=== PATIENT | male | born 1985 | race Caucasian/White ===

== ENCOUNTER 2021-01-06 22:04 | Observation (INO) ==
[2021-01-07] MEDS ORDERED: *HR* LORazepam 2 MG/ML VIAL IVP ONE (01:29)
[2021-01-07 02:20] LABS: Basophils # 0.1 K/mcL (0.0-0.2); Basophils % 0.5 %; Eosinophils # 0.3 K/mcL (0.0-0.6); Eosinophils % 2.1 %; Hematocrit 31.8 % (37.5-50.1); Hemoglobin 10.7 g/dL (12.9-16.9); Immature Granulocytes % 0.4 % (0-4); Lymphocytes # 2.7 K/mcL (0.6-4.6); Lymphocytes % 19.4 %; Mean Corpuscular HGB Conc 33.6 g/dL (31.6-35.5); Mean Corpuscular Hemoglobin 30.7 pg (28.0-33.3); Mean Corpuscular Volume 91.1 fL (83.0-100.0); Mean Platelet Volume 9.2 fL (9.4-12.4); Monocytes # 1.7 K/mcL (0.0-1.3); Monocytes % 11.9 %; Neutrophils # 9.3 K/mcL (1.6-8.9); Platelet Count 296 K/mcL (140-400); Red Blood Count 3.49 M/mcL (4.19-5.50); Red Cell Distribution Width 13.5 % (11.5-14.5); Segmented Neutrophils % 65.7 %; White Blood Count 14.1 K/mcL (4.3-11.1)
[2021-01-07 02:27] LABS: Alanine Aminotransferase 44 Units/L (7-52); Albumin 3.8 g/dL (3.5-5.7); Alkaline Phosphatase 66 Units/L (34-104); Aspartate Amino Transferase 29 Units/L (13-39); BUN/Creatinine Ratio 23 (6-26); Bilirubin,Total 0.5 mg/dL (0.3-1.0); Blood Urea Nitrogen 20 mg/dL (6-20); Carbon Dioxide 26 mEq/L (23-29); Chloride 103 mEq/L (98-107); Creatine Kinase 507 Units/L (30-223); Globulin 3.7 g/dL (2.4-3.5); Glucose 83 mg/dL (70-105); Osmolality,Calculated 286 (280-300); Potassium 4.1 mEq/L (3.5-5.1); Sodium 137 mEq/L (136-145); Total Protein 7.5 g/dL (6.4-8.9); eGFR For African Americans > 60 (> 60); eGFR For Non-African Americans > 60 (> 60)
[2021-01-07] MEDS ORDERED: Ondansetron 4 MG/2 ML VIAL IVP PRN ×2 (02:34→14:09)
[2021-01-07] MEDS ORDERED: Naloxone 0.4 MG/ML INJ IVP PRN ×2 (02:34→14:09)
[2021-01-07] MEDS ORDERED: Nicotine 14 MG PATCH.TD24 TD SCH (03:45)
[2021-01-07] MEDS ORDERED: 0.9 % Sodium Chloride 1,000 ML IVC SCH (06:30)
[2021-01-07] MEDS ORDERED: *HR* Heparin 5,000 UNIT/ML VIAL SQ SCH (06:30)
[2021-01-07] MEDS ORDERED: Vancomycin 1,250 MG/262.5 ML IV.SOLN IVPB SCH (08:00)
[2021-01-07] MEDS ORDERED: Meropenem 500 MG in Water for inj. (sterile) 10 ML IVP SCH (08:00)
[2021-01-07] MEDS ORDERED: Meropenem 1,000 MG in Water for inj. (sterile) 20 ML IVP SCH (08:00)
[2021-01-07] MEDS ORDERED: Clindamycin 600 MG/50 ML 600 MG/50 ML IV.SOLN IVPB SCH (08:00)
[2021-01-07] MEDS ORDERED: Acetaminophen IV 1,000 MG/100 ML BAG IVPB ONE ×2 (10:41→13:35)
[2021-01-07] MEDS ORDERED: *HR* FentaNYL (PF) 100 MCG/2 ML VIAL ONE ×2 (11:14→12:09)
[2021-01-07] MEDS ORDERED: Lidocaine -MPF 2% 2 ML VIAL ONE ×2 (11:14→11:16)
[2021-01-07] MEDS ORDERED: *HR* Propofol 200 MG/20 ML VIAL IVP ONE (11:16)
[2021-01-07] MEDS ORDERED: Ondansetron 4 MG/2 ML VIAL ONE (12:12)
[2021-01-07] MEDS ORDERED: *HR* Midazolam HCl 2 MG/2 ML VIAL ONE (12:12)
[2021-01-07] MEDS ORDERED: Bupivacaine/Clonidine Syringe 20 ML, Syringe LUER-LOK 1 EACH TP ONE (12:15)
[2021-01-07] MEDS ORDERED: *HR* HYDROMORPHONE 2 MG/ML VIAL ONE (13:01)
[2021-01-07] MEDS ORDERED: Ketorolac 30 MG/ML VIAL ONE (13:12)
[2021-01-07] MEDS ORDERED: Famotidine 20 MG/2 ML VIAL IVP ONE (13:35)
[2021-01-07] MEDS ORDERED: *HR* OxyCODONE Immed Rel 5 MG TABLET PO PRN (13:35)
[2021-01-07] MEDS ORDERED: *HR* HYDROmorphone 2 MG TABLET PO PRN (13:35)
[2021-01-07] MEDS ORDERED: *HR* Labetalol 20 MG/4 ML SYRINGE IVP PRN (13:35)
[2021-01-07] MEDS ORDERED: *HR* HYDROmorphone PF 0.5 MG/0.5 ML SYRINGE IVP PRN (13:41)
[2021-01-07] MEDS: *HR* Heparin 5,000 UNIT/ML VIAL SQ SCH (14:47)
[2021-01-07] MEDS: 0.9 % Sodium Chloride 1,000 ML IVC SCH (15:29)
[2021-01-07] MEDS: Meropenem 1,000 MG in Water for inj. (sterile) 20 ML IVP SCH (15:30)
[2021-01-07] MEDS: Vancomycin 1,250 MG/262.5 ML IV.SOLN IVPB SCH (15:31)
[2021-01-07] MEDS: Clindamycin 600 MG/50 ML 600 MG/50 ML IV.SOLN IVPB SCH (15:31)
[2021-01-07] MEDS: Meropenem 1,000 MG in 0.9 % Sodium Chloride Mini Bag 100 ML IVP SCH (23:24)
[2021-01-08] MEDS: Clindamycin 600 MG/50 ML 600 MG/50 ML IV.SOLN IVPB SCH ×2 (00:20→09:32)
[2021-01-08] MEDS: 0.9 % Sodium Chloride 1,000 ML IVC SCH ×2 (00:57→09:32)
[2021-01-08] MEDS: Vancomycin 1,250 MG/262.5 ML IV.SOLN IVPB SCH ×2 (00:58→09:32)
[2021-01-08] MEDS ORDERED: Acetaminophen IV 1,000 MG/100 ML BAG IVPB ONE (01:09)
[2021-01-08] MEDS ORDERED: *HR* HYDROmorphone 2 MG TABLET PO ONE (03:46)
[2021-01-08] MEDS: *HR* Heparin 5,000 UNIT/ML VIAL SQ SCH (07:12)
[2021-01-08 07:56] VITALS: BP 118/75; PULSE 80; TEMP 98.5; O2SAT 99
[2021-01-08] MEDS ORDERED: Meropenem 1,000 MG in Water for inj. (sterile) 20 ML IVP SCH (08:06)
[2021-01-08] MEDS: Meropenem 1,000 MG in Water for inj. (sterile) 20 ML IVP SCH (08:21)
[2021-01-08] MEDS ORDERED: Nicotine 14 MG PATCH.TD24 TD SCH (09:00)
[2021-01-08] MEDS: Meropenem 1,000 MG in 0.9 % Sodium Chloride Mini Bag 100 ML IVP SCH (09:34)
== END 2021-01-08 10:49 | disposition left against medical advice (07) ==
LOC: EMEROOARM 22:04 → 3BNU 22:04 → SUATTDRO 01-07 02:20 → 3BNU 01-07 02:47
PROVIDERS: ADMIT Internal Medicine; ATTEND Internal Medicine